=== PATIENT | female | born 1960 ===

== ENCOUNTER 2018-10-28 02:49 | Emergency (ER) | payer OTHER ==
[2018-10-28] MEDS ORDERED: ESCI20TA38 PO (03:06)
[2018-10-28] MEDS ORDERED: ATEN-1 PO (03:06)
[2018-10-28] MEDS ORDERED: LISI-362 PO (03:06)
[2018-10-28] MEDS ORDERED: RANI300C8 PO (03:06)
[2018-10-28] MEDS ORDERED: PANT40SU3 PO (03:06)
[2018-10-28] MEDS ORDERED: ATOR10TA24 PO (03:06)
--- NOTE | 2018-10-28 03:06 | ER Report ---
History and Physical Time Seen By MD: 03:06 Hx. of Stated Complaint: flank pain started around 1am. thought it was gas but it's getting worse HPI/ROS CHIEF COMPLAINT: Flank pain left HISTORY OF PRESENT ILLNESS: This is a 58-year-old female. She started having left-sided flank pain around 1 AM. Thought it was gas but did not relieve with passing gas. She feels bloated. Had a small bowel movement. No relief. Having some fevers and chills. No dysuria. That is having urinary frequency. No extremity pain. No cough or shortness of breath with this. Having nausea with some vomiting, report oral intake today Allergies: Coded Allergies: Penicillins (Verified Allergy, Intermediate, 10/28/18) codeine (Verified Allergy, Intermediate, 10/28/18) n/v hydrocodone (Verified Allergy, Intermediate, 10/28/18) itching ketorolac (Verified Allergy, Intermediate, 10/28/18) itching promethazine (Verified Allergy, Intermediate, 10/28/18) headache morphine (Verified Allergy, Unknown, 10/28/18) rash Home Meds Active Scripts Levofloxacin 500 Mg Tab (LEVOFLOXACIN 500 MG TAB) 500 Mg Tablet, 500 MG PO QDAY, #10 TAB 0 Refills Prov:PAO SALAZAR MD 10/28/18 Metronidazole (METRONIDAZOLE) 500 Mg Tablet, 500 MG PO TID, #30 TAB 0 Refills Prov:PAO SALAZAR MD 10/28/18 Reported Medications Escitalopram Oxalate (LEXAPRO) 20 Mg Tablet, 10 MG PO QDAY, TAB 10/28/18 Pantoprazole Sodium (PROTONIX) 40 Mg Granpkt.dr, 40 MG PO QDAY, PACK 10/28/18 Atenolol (ATENOLOL) 50 Mg Tablet, 1 TAB PO BID, TAB 10/28/18 Ranitidine Hcl (RANITIDINE HCL) 300 Mg Capsule, 300 MG PO QDAY, CAPSULE 10/28/18 Lisinopril (LISINOPRIL) 10 Mg Tablet, 10 MG PO QDAY, TAB 10/28/18 Atorvastatin Calcium (LIPITOR) 10 Mg Tablet, 1 TAB PO QDAY, TAB 10/28/18 Reviewed Nurses Notes: Yes Hx Substance Use Disorder: No Hx Alcohol Use: No Constitutional Vital Sign - Last 24 Hours 2/1610/28/18 10/28/18 10/28/18 02:55 02:57 03:00 03:19 Temp 98.6 Pulse 72 67 Resp 18 B/P (MAP) 160/80 160/80 (106) 146/74 (98) Pulse Ox 89 94 O2 Delivery Room Air 10/28/18 10/28/18 10/28/18 10/28/18 03:30 03:34 04:00 04:04 Pulse 66 69 B/P (MAP) 147/85 (105) ???/??? (1665) Pulse Ox 91 91 10/28/18 10/28/18 10/28/18 10/28/18 04:19 04:30 04:34 04:39 Pulse 72 ? B/P (MAP) ???/??? (1665) Pulse Ox 96 10/28/18 10/28/18 10/28/18 10/28/18 04:45 04:54 05:00 05:09 Pulse 71 74 B/P (MAP) 127/71 (89) 125/71 (89) Pulse Ox 93 94 10/28/18 10/28/18 10/28/18 10/28/18 05:14 05:29 05:30 05:44 Pulse 74 78 72 B/P (MAP) 121/74 (90) Pulse Ox 94 94 94 10/28/18 05:58 B/P (MAP) 129/67 (87) Intake and Output 10/27/18 10/27/18 10/28/18 15:00 23:00 07:00 Intake Total 1000 ml Balance 1000 ml Physical Exam General Appearance: The patient is alert. No acute distress. Nontoxic in appearance. Eyes: Pupils are equal, round. No pallor, injection or icterus. ENT: Mucous membranes are dry. Normal oral mucosa. Posterior oropharynx is normal. Neck: Supple and non tender. Respiratory: Lungs are clear to auscultation. Cardiovascular: Regular rate and rhythm. No murmurs, gallops or rubs. Normal capillary refill. Gastrointestinal: Abdomen is soft, tender in the left side and left flank. No ndistended. Guarding but no rebound. No masses or organomegaly. Normal active bowel sounds. Has some left-sided CVA tenderness with percussion. Neurological: Alert and oriented x3. No focal neurologic deficits Skin: Warm and dry. No rashes. Musculoskeletal: Extremities are nontender. No tenderness in the back and spine DIFFERENTIAL DIAGNOSIS: After history and physical exam, differential diagnosis was considered for flank pain including but not limited to musculoskeletal causes, kidney stone, pyelonephritis, shingles, and intra-abdominal causes such as diverticulitis. Medical Decision Making Data Points Result Diagram: 10/28/18 0305 10/28/18 0305 Laboratory Hematology Test 10/28/18 02:57 10/28/18 03:05 Urine Color Straw Urine Clarity Clear Urine pH 7.0 pH (4.8-9.5) Urine Specific [place] 1.005 Urine Protein Negative mg/dL (NEGATIVE) Urine Glucose (UA) Negative mg/dL (NEGATIVE) Urine Ketones Negative mg/dL (NEGATIVE) Urine Blood Small (NEGATIVE) Urine Nitrite Negative (NEGATIVE) Urine Bilirubin Negative (NEGATIVE) Urine Urobilinogen Negative mg/dL (0.2-1.9) Urine Leukocyte Esterase Negative (NEGATIVE) Urine RBC 1 /HPF (0-2/HPF) Urine WBC None /HPF (0-5/HPF) Urine Squamous Epithelial Cells Few /LPF (</=FEW) Urine Bacteria Negative /HPF (NONE-FEW) Urine Mucus None /HPF (NONE-FEW) Red Blood Count 4.91 M/uL (4.17-5.56) Mean Corpuscular Volume 84.4 fL (80.0-96.0) Mean Corpuscular Hemoglobin 27.9 pg (26.0-33.0) Mean Corpuscular Hemoglobin Concent 33.0 g/dL (32.0-36.0) Red Cell Distribution Width 13.6 % (11.5-14.5) Mean Platelet Volume 9.2 fL (7.2-11.1) Neutrophils (%) (Auto) 73.1 % (39.4-72.5) Lymphocytes (%) (Auto) 18.7 % (17.6-49.6) Monocytes (%) (Auto) 6.7 % (4.1-12.4) Eosinophils (%) (Auto) 1.2 % (0.4-6.7) Basophils (%) (Auto) 0.3 % (0.3-1.4) Nucleated RBC Relative Count (auto) 0.0 /100WBC Neutrophils # (Auto) 10.1 K/uL (2.0-7.4) Lymphocytes # (Auto) 2.6 K/uL (1.3-3.6) Monocytes # (Auto) 0.9 K/uL (0.3-1.0) Eosinophils # (Auto) 0.2 K/uL (0.0-0.5) Basophils # (Auto) 0.0 K/uL (0.0-0.1) Nucleated RBC Absolute Count (auto) 0.00 K/uL Sodium Level 135 mmol/L (137-145) Potassium Level 3.7 mmol/L (3.5-5.0) Chloride Level 99 mmol/L (98-107) Carbon Dioxide Level 26 mmol/L (22-31) Blood Urea Nitrogen 17 mg/dl (7-18) Creatinine 0.70 mg/dl (0.52-1.04) Glomerular Filtration Rate Calc > 60.0 Random Glucose 120 mg/dl (75-110) Calcium Level 9.7 mg/dl (8.4-10.2) Total Bilirubin 0.7 mg/dl (0.2-1.3) Aspartate Amino Transf (AST/SGOT) 23 U/L (0-35) Alanine Aminotransferase (ALT/SGPT) 33 U/L (0-56) Alkaline Phosphatase 72 U/L (0-126) Total Protein 7.1 g/dl (6.3-8.2) Albumin 4.5 g/dl (3.5-5.0) Amylase Level 42 U/L (0-110) Lipase 123 U/L (23-300) Chemistry Test 10/28/18 02:57 10/28/18 03:05 Urine Color Straw Urine Clarity Clear Urine pH 7.0 pH (4.8-9.5) Urine Specific [place] 1.005 Urine Protein Negative mg/dL (NEGATIVE) Urine Glucose (UA) Negative mg/dL (NEGATIVE) Urine Ketones Negative mg/dL (NEGATIVE) Urine Blood Small (NEGATIVE) Urine Nitrite Negative (NEGATIVE) Urine Bilirubin Negative (NEGATIVE) Urine Urobilinogen Negative mg/dL (0.2-1.9) Urine Leukocyte Esterase Negative (NEGATIVE) Urine RBC 1 /HPF (0-2/HPF) Urine WBC None /HPF (0-5/HPF) Urine Squamous Epithelial Cells Few /LPF (</=FEW) Urine Bacteria Negative /HPF (NONE-FEW) Urine Mucus None /HPF (NONE-FEW) White Blood Count 13.9 k/uL (4.5-11.0) Red Blood Count 4.91 M/uL (4.17-5.56) Hemoglobin 13.7 g/dL (12.0-16.0) Hematocrit 41.4 % (34.0-47.0) Mean Corpuscular Volume 84.4 fL (80.0-96.0) Mean Corpuscular Hemoglobin 27.9 pg (26.0-33.0) Mean Corpuscular Hemoglobin Concent 33.0 g/dL (32.0-36.0) Red Cell Distribution Width 13.6 % (11.5-14.5) Platelet Count 240 K/uL (150-450) Mean Platelet Volume 9.2 fL (7.2-11.1) Neutrophils (%) (Auto) 73.1 % (39.4-72.5) Lymphocytes (%) (Auto) 18.7 % (17.6-49.6) Monocytes (%) (Auto) 6.7 % (4.1-12.4) Eosinophils (%) (Auto) 1.2 % (0.4-6.7) Basophils (%) (Auto) 0.3 % (0.3-1.4) Nucleated RBC Relative Count (auto) 0.0 /100WBC Neutrophils # (Auto) 10.1 K/uL (2.0-7.4) Lymphocytes # (Auto) 2.6 K/uL (1.3-3.6) Monocytes # (Auto) 0.9 K/uL (0.3-1.0) Eosinophils # (Auto) 0.2 K/uL (0.0-0.5) Basophils # (Auto) 0.0 K/uL (0.0-0.1) Nucleated RBC Absolute Count (auto) 0.00 K/uL Glomerular Filtration Rate Calc > 60.0 Calcium Level 9.7 mg/dl (8.4-10.2) Total Bilirubin 0.7 mg/dl (0.2-1.3) Aspartate Amino Transf (AST/SGOT) 23 U/L (0-35) Alanine Aminotransferase (ALT/SGPT) 33 U/L (0-56) Alkaline Phosphatase 72 U/L (0-126) Total Protein 7.1 g/dl (6.3-8.2) Albumin 4.5 g/dl (3.5-5.0) Amylase Level 42 U/L (0-110) Lipase 123 U/L (23-300) Urinalysis Test 10/28/18 02:57 Urine Color Straw Urine Clarity Clear Urine pH 7.0 pH (4.8-9.5) Urine Specific [place] 1.005 Urine Protein Negative mg/dL (NEGATIVE) Urine Glucose (UA) Negative mg/dL (NEGATIVE) Urine Ketones Negative mg/dL (NEGATIVE) Urine Blood Small (NEGATIVE) Urine Nitrite Negative (NEGATIVE) Urine Bilirubin Negative (NEGATIVE) Urine Urobilinogen Negative mg/dL (0.2-1.9) Urine Leukocyte Esterase Negative (NEGATIVE) Urine RBC 1 /HPF (0-2/HPF) Urine WBC None /HPF (0-5/HPF) Urine Squamous Epithelial Cells Few /LPF (</=FEW) Urine Bacteria Negative /HPF (NONE-FEW) Urine Mucus None /HPF (NONE-FEW) EKG/Imaging Imaging EXAMINATION: CT abdomen with IV contrast CT pelvis with IV contrast HISTORY: Left abdominal and flank pain. COMPARISON: None. TECHNIQUE: Axial images were taken through the abdomen and pelvis with intravenous contrast. Sagittal and coronal reformatted images are also submitted. CONTRAST: 75 mL of IV Isovue-370. One of the following dose optimization techniques was utilized in the perfor raven of this exam: Automated exposure control; adjustment of the mA and/or kV according to the patient's size; or use of an iterative reconstruction technique. Specific details can be referenced in the facility's radiology CT exam operational policy. FINDINGS: Liver/biliary: Previous cholecystectomy. No biliary ductal dilatation. Pancreas: Negative. Spleen: Negative. Adrenal glands: Negative. Kidneys: Negative. Pelvic structures: Negative. Bowel: There is diverticulosis of the colon. There is wall edema of the mid and distal descending colon in the left side of the abdomen, centered on an inflamed diverticulum. No distended bowel loops. Peritoneum/retroperitoneum/mesenteries: There is significant inflammation in the fat adjacent to the mid and distal descending colon, with thickening of the adjacent lateral conal fascia. No free air or abscess. Vessels: Mild atherosclerotic calcifications. Vascular structures are patent. Musculoskeletal/body wall: Mild degenerative changes of the lumbar spine. Lymph nodes: Negative. Lower chest: Negative. IMPRESSION: 1. Acute diverticulitis of the mid and distal descending colon. 2. Previous cholecystectomy. Report Dictated By: Sherrie Nagy MD at 10/28/2018 5:04 AM ED Course/Re-evaluation Clinical Indication for ER IV: Hydration, IV Access ED Course Patient has colitis or diverticulitis. Started levofloxacin and metronidazole. She has hyoscyamine that she will use for nausea and pain. Also Tylenol or ibuprofen. She did not want any further pain medicine or nausea medicine. Decision to Disposition Date: Oct 28, 2018 Decision to Disposition Time: 05:50 Depart Departure Latest Vital Signs Vital Signs Date Time Temp Pulse Resp B/P (MAP) Pulse Ox O2 Delivery O2 Flow Rate FiO2 10/28/18 05:58 129/67 (87) 10/28/18 05:44 72 94 10/28/18 02:55 98.6 18 Room Air Impression: Primary Impression: Colitis Condition: Improved Disposition: HOME OR SELF-CARE New Scripts Levofloxacin 500 Mg Tab (LEVOFLOXACIN 500 MG TAB) 500 Mg Tablet 500 MG PO QDAY, #10 TAB 0 Refills Prov: PAO SALAZAR MD 10/28/18 Metronidazole (METRONIDAZOLE) 500 Mg Tablet 500 MG PO TID, #30 TAB 0 Refills Prov: PAO SALAZAR MD 10/28/18 Patient Instructions: Colitis (ED), Diverticulitis (ED) Additional Instructions: You have an infection in the wall of the colon. We treat this with a combination of antibiotics for 10 days. Levofloxacin 500mg once a day for 10 days. Metronidazole 500mg three times a day for 10 days. Tylenol or Ibuprofen as needed for pain. Use your Hyosciamine as needed for nausea and pain. PAO SALAZAR MD Oct 28, 2018 03:06
[2018-10-28] MEDS ORDERED: NS(*) 0.9% 1000 ML BAG 1,000 ML IV ONE (03:22)
[2018-10-28 03:47] LABS: PLATELET COUNT, AUTOMATED 240 K/uL (150-450)
[2018-10-28] MEDS ORDERED: IOPAMIDOL 61% 75 ML INFUS BTL 75 ML ONE (04:28)
--- NOTE | 2018-10-28 05:13 | RADIOLOGY IMAGING REPORT ---
FACILITY: [facility] PATIENT NAME: Any Bush : 1960 MR: [id number] V: [id number] EXAM DATE: ORDERING PHYSICIAN: PAO SALAZAR TECHNOLOGIST: Location: [facility] [place] Patient: Any Bush : 1960 Visit/Account:[id number] Date of Sevice: 10/28/2018 EXAMINATION: CT abdomen with IV contrast CT pelvis with IV contrast HISTORY: Left abdominal and flank pain. COMPARISON: None. TECHNIQUE: Axial images were taken through the abdomen and pelvis with intravenous contrast. Sagitt al and coronal reformatted images are also submitted. CONTRAST: 75 mL of IV Isovue-370. One of the following dose optimization techniques was utilized in the performance of this exam: Autom ated exposure control; adjustment of the mA and/or kV according to the patient's size; or use of an i terative reconstruction technique. Specific details can be referenced in the facility's radiology C T exam operational policy. FINDINGS: Liver/biliary: Previous cholecystectomy. No biliary ductal dilatation. Pancreas: Negative. Spleen: Negative. Adrenal glands: Negative. Kidneys: Negative. Pelvic structures: Negative. Bowel: There is diverticulosis of the colon. There is wall edema of the mid and distal descending col on in the left side of the abdomen, centered on an inflamed diverticulum. No distended bowel loops. Peritoneum/retroperitoneum/mesenteries: There is significant inflammation in the fat adjacent to the mid and distal descending colon, with thickening of the adjacent lateral conal fascia. No free air or abscess. Vessels: Mild atherosclerotic calcifications. Vascular structures are patent. Musculoskeletal/body wall: Mild degenerative changes of the lumbar spine. Lymph nodes: Negative. Lower chest: Negative. IMPRESSION: 1. Acute diverticulitis of the mid and distal descending colon. 2. Previous cholecystectomy. Report Dictated By: Sherrie Nagy MD at 10/28/2018 5:04 AM Report E-Signed By: Sherrie Nagy MD at 10/28/2018 5:08 AM [id number]
[2018-10-28] MEDS ORDERED: LEVOFLOXACIN 500 MG TAB PO ONE (05:45)
[2018-10-28] MEDS ORDERED: METRONIDAZOLE 500 MG TABLET PO ONE (05:45)
[2018-10-28] MEDS ORDERED: LEVO500T83 PO (05:52)
[2018-10-28] MEDS ORDERED: METR500T15 PO (05:52)
[2018-10-28 05:58] VITALS: BP 129/67
== END 2018-10-28 06:01 | disposition home or self-care (01) ==
LOC: EDBD 02:55 → ER 02:55
DX: K52.9 Noninfective gastroenteritis and colitis, unspecified (principal)
CPT/HCPCS: 74177; 81001; 82150; 83690; 85025; 96360; 99284; J7030; Q9967; 82040; 82247; 82310; 82374; 82435; 82565; 82947; 84075; 84132; 84155; 84295; 84450; 84460; 84520